=== PATIENT | female | born 1975 | race Caucasian/White ===

== ENCOUNTER 2017-08-01 09:17 | Emergency (ER) | payer BC ==
[2017-08-01 10:39] VITALS: BP 112/78
--- NOTE | 2017-08-01 10:41 | UC ---
Skin Complaint HPI - HPI Summary HPI Summary: 42 yo female presents with body wide hives that started last night. She tells me the yesterday during the day she went for a spray arango. This was her first time ever doing this. Later that night broke out into body wide hives and itching. Took benadryl which helped a little. Hives still presents today. Denies throat/face/lip swelling, SOB, trouble breathing, chest pain. - History of Current Complaint Chief Complaint: UCAllergicReaction Time Seen by Provider: 08/01/17 10:41 Stated Complaint: RASH Hx Obtained From: Patient Hx Last Menstrual Period: 2 weeks Onset/Duration: Sudden Onset Current Severity: None Pain Intensity: 0 - Allergy/Home Medications Allergies/Adverse Reactions: Allergies Allergy/AdvReac Type Severity Reaction Status Date / Time No Known Allergies Allergy Verified 08/01/17 10:38 Home Medications: Home Medications diphenhydrAMINE HCl [Benadryl Allergy 25 MG CAP] 2 tab PO BID PRN 08/01/17 [ History Confirmed 08/01/17] Review of Systems Constitutional: Negative Skin: Rash Eyes: Negative ENT: Negative Respiratory: Negative Cardiovascular: Negative Neurovascular: Negative Neurological: Negative Psychological: Negative All Other Systems Reviewed And Are Negative: Yes PMH/Surg Hx/FS Hx/Imm Hx - Additional Past Medical History Additional PMH: None Previously Healthy: Yes - Surgical History Surgical History: Yes Surgery Procedure, Year, and Place: blocked left ureter. right lung surgery. right foot surgery 2015. T&A as a child - Family History Known Family History: Positive: Renal Disease - Social History Occupation: Employed Full-time Lives: With Family Alcohol Use: Daily Substance Use Type: None Smoking Status (MU): Heavy Every Day Tobacco Smoker - Immunization History Most Recent Tetanus Shot: UNK Physical Exam - Summary Physical Exam Summary: GENERAL: NAD. WDWN. No pain distress. SKIN: Diffuse hives worse over chest wall and upper arms HEENT: Head: AT/NC Throat: Posterior oropharynx without exudates, erythema, or tonsillar enlargement. Uvula midline. NECK: Supple. Nontender. No lymphadenopathy. CHEST: CTAB. No r/r/w. No accessory muscle use. Breathing comfortably and in no distress. CV: RRR. Without m/r/g. Pulses intact. Brisk cap refill. NEURO: Alert. CN II-XII grossly intact. PSYCH: Age appropriate behavior. Triage Information Reviewed: Yes Vital Signs: Initial Vital Signs Temp 99.2 F 08/01/17 10:34 Pulse 88 08/01/17 10:34 Resp 18 08/01/17 10:34 BP 112/78 08/01/17 10:34 Pulse Ox 100 08/01/17 10:34 Course/Dx - Course Course Of Treatment: 40mg IM solumedrol in clinic today. Rx for prednisone. Keep taking benadryl. Go to ED if symptoms worsen - Diagnoses Provider Diagnoses: Hives. Allergies reaction Discharge - Sign-Out/Discharge Documenting (check all that apply): Discharge/Admit/Transfer - Discharge Plan Condition: Stable Disposition: HOME Prescriptions: predniSONE TAB* [Deltasone TAB*] 50 mg PO DAILY #5 tab Patient Education Materials: Urticaria (ED) Referrals: No Primary Care Phys,NOPCP [Primary Care Provider] - Additional Instructions: If you develop a fever, shortness of breath, chest pain, new or worsening symptoms - please call your PCP or go to the ED. 1) Please keep taking benadryl daily - Billing Disposition and Condition Condition: STABLE Disposition: Home
[2017-08-01] MEDS ORDERED: methylPREDNISolone SOD 40 MG* 1 ML VIAL IM ONE (10:45)
== END 2017-08-01 10:51 | disposition home or self-care (01) ==
LOC: UCEAST 09:17
DX: L50.9 Urticaria, unspecified (principal); T78.49XA Other allergy, initial encounter; X58.XXXA Exposure to other specified factors, initial encounter; F17.200 Nicotine dependence, unspecified, uncomplicated; Z84.1 Family history of disorders of kidney and ureter
CPT/HCPCS: 96372; 99212; G0463; J2920

== ENCOUNTER 2018-02-03 12:22 | Emergency (ER) | payer BC ==
[2018-02-03 13:16] VITALS: BP 102/70
--- NOTE | 2018-02-03 13:51 | UC ---
Complaint Female HPI - HPI Summary HPI Summary: Dysuria intermittently over two weeks with "bladder spasms" along with urinary frequency. This feels similar to last UTI one year ago. No fevers, flank pain, vomiting. She is monogamous and has no pain with intercourse and no vaginal symptoms such as discharge or pain. No external vaginal symptoms like itching or burning. - History Of Current Complaint Chief Complaint: UCGU Stated Complaint: URINARY Time Seen by Provider: 02/03/18 13:10 Hx Obtained From: Patient Hx Last Menstrual Period: 02/02/2018 Onset/Duration: Gradual Onset, Lasting Weeks Timing: Constant, Intermittent Severity Initially: Mild Severity Currently: Moderate Pain Intensity: 0 Character: Burning Aggravating Factor(s): Urination Alleviating Factor(s): Nothing Associated Signs And Symptoms: Negative: Fever, Back Pain, Vaginal Bleeding/ Discharge, Vaginal Discharge, Nausea, Vomiting(# Of Episodes =), Genital Swelling, Genital Blisters, Retained Foregin Body (Specify) - Allergies/Home Medications Allergies/Adverse Reactions: Allergies Allergy/AdvReac Type Severity Reaction Status Date / Time latex Allergy Rash Verified 02/03/18 13:11 PMH/Surg Hx/FS Hx/Imm Hx Previously Healthy: No - uti one year ago. - Surgical History Surgical History: Yes Surgery Procedure, Year, and Place: blocked left ureter. right lung surgery. right foot surgery 2014. T&A as a child. appy - Family History Known Family History: Positive: Renal Disease - Social History Alcohol Use: Occasionally Substance Use Type: None Smoking Status (MU): Heavy Every Day Tobacco Smoker Type: Cigarettes Amount Used/How Often: 1 PPD - Immunization History Most Recent Tetanus Shot: UNK Review of Systems All Other Systems Reviewed And Are Negative: Yes Genitourinary: Positive: Dysuria, Frequency Is Patient Immunocompromised?: No Physical Exam Triage Information Reviewed: Yes Appearance: Well-Appearing, No Pain Distress, Well-Nourished Vital Signs: Initial Vital Signs Temp 98.2 F 02/03/18 13:11 Pulse 86 02/03/18 13:11 Resp 14 02/03/18 13:11 BP 102/70 02/03/18 13:11 Pulse Ox 98 02/03/18 13:11 Vital Signs Reviewed: Yes Eyes: Positive: Conjunctiva Clear. Negative: Conjunctiva Inflamed ENT: Positive: Normal ENT inspection Neck: Positive: Supple, Nontender, No Lymphadenopathy Respiratory: Positive: Normal breath sounds, No respiratory distress, No accessory muscle use. Negative: Respiratory distress, Decreased breath sounds, Accessory muscle use, Crackles, Rhonchi, Stridor Cardiovascular: Positive: No Murmur, Pulses Normal, Brisk Capillary Refill. Negative: Tachycardia Abdomen Description: Positive: Soft, Bruit. Negative: CVA Tenderness (R), CVA Tenderness (L), Distended, Guarding Musculoskeletal: Positive: Strength Intact, ROM Intact, No Edema Neurological: Positive: Muscle Tone Normal. Negative: Fatigued Psychological: Positive: Age Appropriate Behavior Skin: Negative: Rashes Complaint Female Dx - Differential Dx/Diagnosis Provider Diagnosis: UTI (urinary tract infection) Discharge - Sign-Out/Discharge Documenting (check all that apply): Patient Departure All imaging exams completed and their final reports reviewed: No Studies - Discharge Plan Condition: Good Disposition: HOME Prescriptions: Nitrofurantoin Monohyd/M-Cryst [Macrobid 100 mg Capsule] 100 mg PO BID #14 cap Patient Education Materials: Dysuria (ED) Referrals: No Primary Care Phys,NOPCP [Primary Care Provider] - Additional Instructions: Follow up with [facility] or return here for any worsening symptoms. - Billing Disposition and Condition Condition: GOOD Disposition: Home
== END 2018-02-03 13:50 | disposition home or self-care (01) ==
LOC: UCCORT 12:22
DX: N39.0 Urinary tract infection, site not specified (principal); B96.20 Unspecified Escherichia coli [E. coli] as the cause of diseases classified elsewhere; F17.210 Nicotine dependence, cigarettes, uncomplicated
CPT/HCPCS: 81003; 87077; 87086; 87186; 99212; G0463

== ENCOUNTER 2018-02-16 14:18 | Emergency (ER) | payer BC ==
[2018-02-16 16:54] VITALS: BP 118/70
--- NOTE | 2018-02-16 17:03 | UC ---
Respiratory Complaint HPI - HPI Summary HPI Summary: Pt c/o cough, chest congestion, tightness x 3 weeks. Pt has hx of pneumonia and is concerned that she is developing it again. - History of Current Complaint Chief Complaint: UCRespiratory Stated Complaint: FEVER COUGH CONGESTION Time Seen by Provider: 02/16/18 16:55 Hx Obtained From: Patient Hx Last Menstrual Period: 02/02/18 ?: No Onset/Duration: Gradual Onset, Lasting Weeks Timing: Constant Severity Initially: Mild Severity Currently: Moderate Pain Intensity: 0 Character: Cough: Nonproductive Aggravating Factors: Deep Breaths, Recumbent Position Alleviating Factors: Nothing Associated Signs And Symptoms: Positive: URI, Nasal Congestion - Risk Factors Pulmonary Embolism Risk Factors: Smoking Cardiac Risk Factors: Smoking Pseudomonas Risk Factors: Negative Tuberculosis Risk Factors: Smoking - Allergies/Home Medications Allergies/Adverse Reactions: Allergies Allergy/AdvReac Type Severity Reaction Status Date / Time latex Allergy Rash Verified 02/16/18 16:51 PMH/Surg Hx/FS Hx/Imm Hx Previously Healthy: Yes - Surgical History Surgical History: Yes Surgery Procedure, Year, and Place: blocked left ureter. right lung surgery. right foot surgery 2014. T&A as a child. appy - Family History Known Family History: Positive: Renal Disease - Social History Occupation: Employed Full-time Alcohol Use: Occasionally Substance Use Type: None Smoking Status (MU): Heavy Every Day Tobacco Smoker Type: Cigarettes Amount Used/How Often: 1 PPD Have You Smoked in the Last Year: Yes - Immunization History Most Recent Tetanus Shot: UNK Review of Systems All Other Systems Reviewed And Are Negative: Yes Constitutional: Positive: Chills, Fatigue Skin: Positive: Negative Eyes: Positive: Negative ENT: Positive: Sinus Congestion Respiratory: Positive: Shortness Of Breath, Cough Cardiovascular: Positive: Negative Gastrointestinal: Positive: Negative Genitourinary: Positive: Negative Motor: Positive: Negative Neurovascular: Positive: Negative Musculoskeletal: Positive: Myalgia Neurological: Positive: Negative Psychological: Positive: Negative Is Patient Immunocompromised?: No Physical Exam Triage Information Reviewed: Yes Appearance: Ill-Appearing Vital Signs: Initial Vital Signs Temp 99.1 F 02/16/18 16:51 Pulse 81 02/16/18 16:51 Resp 16 02/16/18 16:51 BP 118/70 02/16/18 16:51 Pulse Ox 98 02/16/18 16:51 Vital Signs Reviewed: Yes Eye Exam: Normal ENT: Positive: Nasal congestion Dental Exam: Normal Neck exam: Normal Respiratory Exam: Normal Respiratory: Positive: Decreased breath sounds Cardiovascular Exam: Normal Musculoskeletal Exam: Normal Neurological Exam: Normal Psychological Exam: Normal Skin Exam: Normal UC Diagnostic Evaluation - Laboratory O2 Sat by Pulse Oximetry: 98 Respiratory Course/Dx - Differential Dx/Diagnosis Differential Diagnosis/HQI/PQRI: Bronchitis, Sinusitis Provider Diagnosis: Bronchitis Discharge - Sign-Out/Discharge Documenting (check all that apply): Patient Departure All imaging exams completed and their final reports reviewed: No Studies - Discharge Plan Condition: Stable Disposition: HOME Prescriptions: Albuterol HFA INHALER* [Ventolin HFA Inhaler*] 1 - 2 puff INH Q4H PRN #1 mdi PRN Reason: Sob/Wheezing Azithromycin TAB* [Zithromax TAB (Z-YEIMI) 250 mg #6 tabs] 2 tab PO .TODAY, THEN 1 DAILY #1 yeimi predniSONE TAB* [Deltasone 20 MG TAB*] 20 mg PO DAILY #4 tab Patient Education Materials: Acute Bronchitis (ED) Referrals: Shahriar Sue PA [Primary Care Provider] - If Needed - Billing Disposition and Condition Condition: STABLE Disposition: Home
== END 2018-02-16 17:13 | disposition home or self-care (01) ==
LOC: UCCORT 14:18
DX: J40 Bronchitis, not specified as acute or chronic (principal); F17.210 Nicotine dependence, cigarettes, uncomplicated
CPT/HCPCS: 99212; G0463